=== PATIENT | female | born 1955 | race Caucasian/White ===

== ENCOUNTER → 2018-05-06 07:39 | Outpatient (CLI) | payer BC, SELFPAY ==
--- NOTE | 2018-05-06 07:44 | CT_ITS ---
STUDY: CTA CHEST REASON FOR EXAM: Female, 62 years old. Family history of thoracic aortic aneurysm RADIATION DOSAGE (If Supplied By Facility): CTDIvol = ( 5.81 ) mGy, DLP = ( 238.10 ) mGycm TECHNIQUE: The examination was performed with the intravenous administration of Isovue 370 75mL IV. Post-processing of the angiographic images was performed, with multiplanar reformation and 3D reconstruction. Individualized dose optimization techniques were used for this CT. COMPARISON: None. FINDINGS: Normal enhancement of the main pulmonary artery and right and left pulmonary arteries. Normal enhancement of the bilateral peripheral pulmonary arteries. There is no demonstrated pulmonary embolism. The ascending thoracic aorta is mildly ectatic measuring up to 3.9 cm. There is no evidence of aneurysm or dissection. Normal heart and pericardium. There is a 2.1 cm hypodense nodule of the left thyroid lobe. Normal hilar regions. Normal visualized trachea and bronchi. The lungs are well expanded. Normal pulmonary parenchyma. Normal pleura. Normal chest wall structures. Normal osseous structures. Cholelithiasis is noted. There are several cysts of the left hepatic lobe. There is a posterior right hepatic lobe hypodensity measuring 20 Hounsfield units in density, indeterminate for solid versus cystic structure. This measures 4.[address]/CTA Chest W/WO Contrast IMPRESSION: Mildly ectatic ascending thoracic aorta measuring up to 3.9 cm. There is no evidence of thoracic aortic aneurysm or dissection. 2.1 cm hypodense nodule of the left thyroid lobe. Cholelithiasis. Several left hepatic lobe cysts are seen. There is a hypoechoic focus of the medial right hepatic lobe indeterminate for solid versus cystic structure. Ultrasound correlation is recommended. Electronically Signed: Zuhair Schilling MD at 16:58 EDT , Service support ,
[2018-05-07 07:10] LABS: CREATININE FINGERSTICK 1.04 mg/dL (0.55-1.02)
== END ==
DX: Z82.49 Family history of ischemic heart disease and other diseases of the circulatory system (principal)
CPT/HCPCS: 71275; Q9967